=== PATIENT | female | born 1955 | race Caucasian/White ===

== ENCOUNTER 2023-06-26 09:02 | Day surgery (SDC) | payer MEDICARE, OTHER ==
[2023-06-25 08:42] LABS: BASOPHILS % (AUTO) 0.5 % (0-1); EOSINOPHILS # (AUTO) 0.1 X10'3 (0-0.9); EOSINOPHILS % (AUTO) 1.2 % (0-6); HEMATOCRIT 44.8 % (35.0-45.0); HEMOGLOBIN 14.8 g/dl (12.0-16.0); LYMPHOCYTES # (AUTO) 0.8 X10'3 (1.1-4.8); LYMPHOCYTES % (AUTO) 16.7 % (21-51); MEAN CORPUSCULAR HEMOGLOBIN 30.3 PG (27.0-31.0); MEAN CORPUSCULAR VOLUME 91.8 FL (78-98); MEAN PLATELET VOLUME 8.8 FL (7.4-10.4); MONOCYTES # (AUTO) 0.4 X10'3 (0-0.9); MONOCYTES % (AUTO) 8.6 % (2-12); NEUTROPHILS # (AUTO) 3.4 X10'3 (1.8-7.7); PLATELET COUNT 162 X10'3 (140-440); RED BLOOD COUNT 4.88 X10'6 (4.20-5.60); RED CELL DISTRIBUTION WIDTH 14.9 % (11.5-14.5); WHITE BLOOD COUNT 4.7 X10'3 (4.5-11.0)
[2023-06-25 08:50] LABS: APTT 27 SECONDS (22-32); PROTHROMBIN TIME 10.3 SECONDS (9.0-12.0)
[2023-06-25 09:08] LABS: ALBUMIN 3.1 G/DL (3.4-5.0); ANION GAP 8 (8-16); BLOOD UREA NITROGEN 12 MG/DL (7-18); BUN/CREATININE RATIO 16.9 (10.0-20.0); CALCIUM 9.2 MG/DL (8.5-10.1); CHLORIDE 103 MMOL/L (99-107); CREATININE 0.71 MG/DL (0.40-0.90); GLUCOSE 336 MG/DL (70-104); POTASSIUM 3.8 MMOL/L (3.5-5.1); SODIUM 139 MMOL/L (135-145); TOTAL CARBON DIOXIDE 28.5 MMOL/L (24-32); eGFR 82 ML/MIN
[2023-06-26] VITALS (10 sets, daily range): BP systolic 107–129; BP diastolic 67–82; PULSE 56–68; RESP 12; TEMP 98.2; O2SAT 92–99
[~2023-06-26] VITALS: Ht 175.3 cm; Wt 106.4 kg
[~2023-06-26 09:02] MED LIST: CETI-90 PO; CITA-116 PO; DIAZ5TAB4 PO; HYDR12.55; LISI10TA27 PO
[2023-06-26] MEDS ORDERED: normal saline 1,000 ML IV SCH (09:20)
[2023-06-26] MEDS ORDERED: diphenhydrAMINE 25mg capsule PO PRN (09:20)
[2023-06-26] MEDS ORDERED: LORazepam 0.5 MG tablet PO PRN (09:20)
[2023-06-26] MEDS ORDERED: ASPI81TA52 PO (09:42)
[2023-06-26] MEDS ORDERED: LIDOcaine 1% (10mg/ml) 2ml vial ONE (11:02)
[2023-06-26] MEDS ORDERED: iohexol 350 MG/ML 50ML vial IV ONE (11:02)
[2023-06-26] MEDS ORDERED: midazolam 1 mg/ML 2ml injection ONE (11:02)
[2023-06-26] MEDS ORDERED: verapamil 2.5 mg/ml inj IV ONE (11:02)
[2023-06-26] MEDS ORDERED: fentaNYL/PF 50MCG/1 ML 2ML syringe ONE (11:02)
[2023-06-26] MEDS ORDERED: heparin 1,000unit/ml 10ml vial 10 ML ONE (11:02)
[2023-06-26] MEDS ORDERED: iohexol 350MG/ML 100ml bottle IV ONE (11:03)
[2023-06-26] MEDS ORDERED: nitroGLYCERIN 500mcg/5mL D5W 5 ML IV ONE (11:03)
[2023-06-26] MEDS ORDERED: atropine 0.1mg/ml 10ml syringe ONE (12:06)
[2023-06-26] MEDS ORDERED: normal saline 1000ml 1,000 ML IV SCH (12:50)
== END 2023-06-26 16:55 | disposition home or self-care (01) ==
LOC: SSTAY O 09:02
PROVIDERS: ATTEND Internal Medicine Cardiovascular Disease
DX: R94.31 Abnormal electrocardiogram [ECG] [EKG] (principal); I25.10 Atherosclerotic heart disease of native coronary artery without angina pectoris; I10 Essential (primary) hypertension; F41.9 Anxiety disorder, unspecified; F32.A Depression, unspecified; Z79.899 Other long term (current) drug therapy; Z98.51 Tubal ligation status; Z96.642 Presence of left artificial hip joint; Z98.890 Other specified postprocedural states; Z88.0 Allergy status to penicillin; Z88.1 Allergy status to other antibiotic agents; Z88.2 Allergy status to sulfonamides; Z88.8 Allergy status to other drugs, medicaments and biological substances; Z79.01 Long term (current) use of anticoagulants; Z82.49 Family history of ischemic heart disease and other diseases of the circulatory system
CPT/HCPCS: 36415; 76937; 80048; 82948; 85025; 85610; 85730; 93005; 93458; 99152; 99153; A6258; A6402; C1725; C1894; J0461; J1644; J2250; J3010; J3490; J7030; Q0163; Q9967

== ENCOUNTER 2023-11-08 07:16 | Day surgery (SDC) | payer MEDICARE, OTHER ==
[2023-11-04 14:11] LABS: BASOPHILS % (AUTO) 0.4 % (0-1); BILIRUBIN,URINE NEGATIVE (Neg); CLARITY,URINE CLEAR (Clear); COLOR,URINE YELLOW (Yellow); EOSINOPHILS # (AUTO) 0.1 X10'3 (0-0.9); EOSINOPHILS % (AUTO) 1.6 % (0-6); GLUCOSE, URINE NEGATIVE (Neg); KETONES,URINE NEGATIVE (Neg); LEUKOCYTE ESTERASE ,URINE NEGATIVE (Neg); LYMPHOCYTES # (AUTO) 1.4 X10'3 (1.1-4.8); LYMPHOCYTES % (AUTO) 22.1 % (21-51); MEAN CORPUSCULAR HEMOGLOBIN 30.4 PG (27.0-31.0); MEAN CORPUSCULAR HGB CONC 32.7 g/dL (33.0-36.5); MEAN CORPUSCULAR VOLUME 93.1 FL (78-98); MEAN PLATELET VOLUME 8.2 FL (7.4-10.4); MONOCYTES # (AUTO) 0.5 X10'3 (0-0.9); MONOCYTES % (AUTO) 7.9 % (2-12); NEUTROPHILS # (AUTO) 4.3 X10'3 (1.8-7.7); NITRITES, URINE NEGATIVE (Neg); OCCULT BLOOD,URINE NEGATIVE (Neg); PRE OP HEMATOCRIT 43.9 % (35.0-45.0); PRE OP HEMOGLOBIN 14.3 g/dL (12.0-16.0); PRE OP PLATELET COUNT 203 X10'3 (140-440); PRE OP WHITE BLOOD COUNT 6.3 10'3 (4.8-10.8); PROTEIN,URINE NEGATIVE (Neg); RED BLOOD COUNT 4.72 X10'6 (4.20-5.60); RED CELL DISTRIBUTION WIDTH 14.3 % (11.5-14.5); UROBILINOGEN,URINE 0.2 E.U/dL (0.2-1.0)
[2023-11-04 14:16] LABS: UA COLLECTION TYPE NON-SPECIFIED
[2023-11-04 14:38] LABS: ALBUMIN 3.5 G/DL (3.4-5.0); ALBUMIN/GLOBULIN RATIO 0.9 (1.1-1.5); ALKALINE PHOSPHATASE 106 IU/L (46-116); BLOOD UREA NITROGEN 21 MG/DL (7-18); BUN/CREATININE RATIO 29.2 (10.0-20.0); CALCIUM 9.8 MG/DL (8.5-10.1); CHLORIDE 104 MMOL/L (99-107); CREATININE 0.72 MG/DL (0.40-0.90); PRE OP ALT 22 U/L (30-65); PRE OP ANION GAP 4 (8-16); PRE OP AST 19 U/L (10-37); PRE OP BILIRUB, TOTAL 0.6 MG/DL (0.0-1.0); PRE OP GLUCOSE 121 MG/DL (70-104); PRE OP POTASSIUM 3.7 MMOL/L (3.4-5.1); PRE OP SODIUM 139 MMOL/L (135-145); TOTAL CARBON DIOXIDE 30.7 MMOL/L (24-32); TOTAL PROTEIN 7.2 G/DL (6.4-8.2); eGFR 81 ML/MIN
[~2023-11-08] VITALS: Ht 175.3 cm; Wt 103.9 kg
[2023-11-08] VITALS (9 sets, daily range): BP systolic 102–129; BP diastolic 61–88; PULSE 55–79; RESP 12–16; TEMP 97.6; O2SAT 93–99
[~2023-11-08 07:16] MED LIST changes: -CETI-90 PO; +INSU100I31
[2023-11-08] MEDS ORDERED: BUPIVAcaine/PF 2.5mg/ml (0.25%) 10ml vial ONE (07:28)
[2023-11-08] MEDS ORDERED: bacitracin 15gm ointment TP ONE (07:28)
[2023-11-08] MEDS: famotidine 20mg tablet PO ONE (07:53)
[2023-11-08] MEDS: ringers solution, lacted 1,000 ML IV SCH (07:54)
[2023-11-08] MEDS: vancomycin 1,500 MG in NS 300ml IV soln IV ONE (07:54)
[2023-11-08] MEDS ORDERED: cloNIDine hcl/PF 100mcg/ml inj ONE (09:21)
[2023-11-08] MEDS ORDERED: midazolam 1 mg/ML 2ml injection ONE (09:25)
[2023-11-08] MEDS ORDERED: fentaNYL/PF 50MCG/1 ML 2ML syringe ONE (09:25)
[2023-11-08] MEDS ORDERED: propofol inj 20 ML IV ONE (09:38)
[2023-11-08] MEDS ORDERED: ROPIVAcaine 0.5% (5mg/ml) 30ml vial ONE ×2 (09:38)
[2023-11-08] MEDS ORDERED: dexamethasone sod phosphate 4mg/ml inj. ONE (09:38)
[2023-11-08] MEDS: bacitracin 15gm ointment TP ONE (10:02)
[2023-11-08] MEDS ORDERED: meperidine/PF 25mg/ml syringe IV PRN ×3 (10:15)
[2023-11-08] MEDS ORDERED: ondansetron/PF 4mg/2ml inj IV PRN (10:15)
[2023-11-08] MEDS ORDERED: proCHLORperazine 10 MG/2 ml inj IV PRN (10:15)
[2023-11-08] MEDS ORDERED: ringers solution, lacted 1,000 ML IV SCH (10:15)
[2023-11-08] MEDS ORDERED: morphine 2 MG/ML inj. syringe IV PRN (10:15)
[2023-11-08] MEDS ORDERED: morphine 4 MG/ML inj SYRINge IV PRN (10:15)
[2023-11-08] MEDS ORDERED: ondansetron/PF 4mg/2ml inj ONE (11:38)
== END 2023-11-08 13:36 | disposition home or self-care (01) ==
LOC: PAS 07:16
PROVIDERS: ATTEND Podiatrist Foot & Ankle Surgery
DX: M19.072 Primary osteoarthritis, left ankle and foot (principal); M25.375 Other instability, left foot; M20.42 Other hammer toe(s) (acquired), left foot; I10 Essential (primary) hypertension; E11.9 Type 2 diabetes mellitus without complications; E66.9 Obesity, unspecified; F32.A Depression, unspecified; Z79.4 Long term (current) use of insulin; Z79.84 Long term (current) use of oral hypoglycemic drugs; Z79.899 Other long term (current) drug therapy; Z98.51 Tubal ligation status; Z96.642 Presence of left artificial hip joint; Z98.890 Other specified postprocedural states; Z68.33 Body mass index [BMI] 33.0-33.9, adult; Z88.0 Allergy status to penicillin; Z88.1 Allergy status to other antibiotic agents; Z88.2 Allergy status to sulfonamides; Z88.8 Allergy status to other drugs, medicaments and biological substances; Z83.3 Family history of diabetes mellitus; Z82.49 Family history of ischemic heart disease and other diseases of the circulatory system
CPT/HCPCS: 20680; 28110; 28285; 28737; 36415; 64445; 73620; 80053; 81003; 82948; 85025; A6223; C1713; J0735; J1100; J2250; J2405; J2704; J2795; J3010; J3370; J7030; J7120; Z7506; Z7508; Z7512; 76000; A4215; A4618; A6449; A7000; J3490